=== PATIENT | male | born 1995 | race Caucasian/White ===

== ENCOUNTER → 2017-11-09 | Outpatient (CLI) | payer BC ==
[2017-11-09 14:24] LABS: BASO # 0.1 (0.0-0.2); EOS # 0.1 (0.0-0.7); EOS % 2.3 % (0-4.0); GRAN # 3.1 (1.4-6.5); GRAN % 59.9 % (42.2-75.2); HEMATOCRIT 42.2 % (42.0-52.0); HEMOGLOBIN 14.3 g/dl (13.5-18.0); LYMPH # 1.4 (1.2-3.4); MEAN CELL VOLUME 87 fl (80.0-100.0); MEAN CORPUSCULAR HEMOGLOBIN 30 pg (27.0-31.0); MEAN CORPUSCULAR HGB CONC 34 g/dl (33.0-37.0); MEAN PLATELET VOLUME 11.2 fl (7.4-10.4); MONO # 0.5 (0.1-0.6); MONO % 9.6 % (1.7-9.3); PLATELET COUNT 207 K/mm3 (130-400); RED BLOOD COUNT 4.84 M/mm3 (4.20-5.60); REDCELL DISTRIBUTION WIDTH-CV 12.2 % (11.5-14.5)
[2017-11-09 14:33] LABS: ALBUMIN 4.1 gm/dL (3.5-5.0); CALCIUM 9.5 mg/dL (8.4-10.2); CREATININE, serum 0.68 mg/dL (0.66-1.25); TOTAL PROTEIN 7.1 gm/dL (6.4-8.2)
[2017-11-09 14:40] LABS: URINE PROTEIN:CREAT RATIO 0.08 (0.00-0.14)
== END ==
LOC: COL.LAB 10:28
PROVIDERS: Family Medicine
DX: E10.9 Type 1 diabetes mellitus without complications (principal)